=== PATIENT | female | born 1975 | race Hispanic/Latino ===

== ENCOUNTER 2020-01-19 00:41 | Emergency (ER) | payer OTHER ==
[~2020-01-19] VITALS: Ht 157.5 cm; Wt 78.1 kg
[~2020-01-19 00:41] MED LIST: FLEXERIL OR; LORTAB 5 OR; ULTRAM50 M1 OR
[2020-01-19] MEDS ORDERED: MULTIVITAMI1 PO (00:59)
[2020-01-19] MEDS ORDERED: MEDDOSEPAK PO (01:23)
[2020-01-19 01:35] VITALS: BP 121/75
[2020-01-19] MEDS ORDERED: EPIPEN 2-P0.3 MG/0.3 IM (01:49)
== END 2020-01-19 02:00 | disposition home or self-care (01) | DRG 607 ==
LOC: ED 00:41
DX: L50.0 Allergic urticaria (principal)